=== PATIENT | male | born 1990 | race Caucasian/White ===

== ENCOUNTER 2020-08-10 17:07 | Emergency (ER) | payer OTHER, SELFPAY ==
[2020-08-10 17:20] VITALS: BP 151/79; PULSE 64; RESP 18; TEMP 37.3; O2SAT 98
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
== END 2020-08-10 23:29 | disposition home or self-care (01) ==
PROVIDERS: Emergency Provider Emergency Medicine
DX: S90.412A Abrasion, left great toe, initial encounter (principal); V19.9XXA Pedal cyclist (driver) (passenger) injured in unspecified traffic accident, initial encounter
CPT/HCPCS: 73660; 99283

== ENCOUNTER 2020-12-30 15:59 | Emergency (ER) | payer OTHER, SELFPAY ==
[2020-12-30 16:09] VITALS: BP 154/86; PULSE 75; RESP 16; TEMP 36.6; O2SAT 99; BMI 28.1
[2020-12-30 16:31] LABS: COVID19 -Nasal RAPID Negative (Negative)
[2020-12-30] MEDS: IBUPROFEN 400 MG TABLET 800 MG PO (16:42)
--- NOTE | 2020-12-30 17:06 | ED_ITS ---
HPI - URI/Sore Throat <LAURENCE Mallory - Last Filed: 12/30/20 17:14> General Chief Complaint: Upper Respiratory Symptoms Stated Complaint: nose runny clogged, weak, needs dr note for work Time Seen by Provider: 12/30/20 16:09 Source: patient Mode of arrival: Ambulatory History of Present Illness HPI Narrative: 30-year-old male presents to the ED for runny nose and congestion that started 6 days ago, he reports that his son is positive for rhino virus, he was seeking COVID testing, he is vaccinated. He took the last 2 days off of work for his symptoms, he denies any fever, reports that he has a bilateral frontal headache, he denies any cough, denies any nausea or vomiting. Patient denies any shortness of breath, chest pain, difficulty breathing, wheezing, or other symptoms. Related Data Home Medications Medication Instructions Recorded Confirmed lisinopril 10 1 tab PO DAILY 12/30/20 12/30/20 mg-hydrochlorothiazide 12.5 mg tablet Allergies Allergy/AdvReac Type Severity Reaction Status Date / Time No Known Drug Allergies Allergy Verified 12/30/20 16:11 Review of Systems <LAURENCE Mallory - Last Filed: 12/30/20 17:14> Review of Systems Narrative: General: denies fever, chills Head/Neck: denies headache, neck pain, denies face pain, endorses runny nose and congestion Eyes: denies visual changes, eye pain Cardio: denies chest pain, palpitations Respiratory: denies shortness of breath, cough GI: denies abdominal pain, nausea, vomiting, or diarrhea : denies dysuria, hematuria MSK: denies joint pain, muscle weakness Skin: denies rash, itching Neuro: denies numbness, tingling Patient History <LAURENCE Mallory - Last Filed: 12/30/20 17:14> Medical History Healthy adult Social History lives independently: Yes Smoking Status: Current every day smoker Smoking Status: Current every day smoker alcohol intake frequency: a few times a week Substance Use Type: does not use Exam <LAURENCE Mallory - Last Filed: 12/30/20 17:14> Narrative Exam Narrative: Independently reviewed vitals signs and nursing notes. General: Awake, alert, nontoxic, no cardiorespiratory distress Head/Neck: Atraumatic, neck full range of motion Eyes: EOMI, conjunctiva normal Nose: nares patent, + rhinorrhea, no sinus tenderness to palpation Mouth/Throat: moist mucus membranes, posterior pharynx normal, no oral lesions Cardio: Regular rate and rhythm, no peripheral edema Respiratory: respirations unlabored without wheezing, stridor, or rales. No retractions. GI: Abdomen soft, nontender MSK: Moves all extremities, neurovascularly intact Skin: Normal capillary refill, no rash Neuro: Normal speech and cognition, normal gait Initial Vital Signs Initial Vital Signs: Vital Signs Temperature 98 F 12/30/20 16:09 Pulse Rate 75 12/30/20 16:09 Respiratory Rate 16 12/30/20 16:09 Blood Pressure 154/86 H 12/30/20 16:09 Pulse Oximetry 99 12/30/20 16:09 <Kaylynn Nesbitt DO - Last Filed: 12/30/20 20:00> Initial Vital Signs Initial Vital Signs: Vital Signs Temperature 98 F 12/30/20 16:09 Pulse Rate 75 12/30/20 16:09 Respiratory Rate 16 12/30/20 16:09 Blood Pressure 154/86 H 12/30/20 16:09 Pulse Oximetry 99 12/30/20 16:09 Course <LAURENCE Mallory - Last Filed: 12/30/20 17:14> Orders Ordered: ED Orders 12/30/20 16:05 COVID19 -Nasal swab/Pre-Proc Stat Discontinued Medications Ibuprofen (Ibuprofen 400 Mg Tablet) 800 mg PO NOW ONE Stop: 12/30/20 16:33 Last Admin: 12/30/20 16:42 Dose: 800 mg Documented by: PASTOR Vital Signs Vital signs: Vital Signs - 8 hr 12/30/20 16:09 12/30/20 17:16 Temperature 98 F Pulse Rate 75 70 Respiratory Rate 16 17 Blood Pressure 154/86 H 142/92 H Pulse Oximetry 99 98 <Kaylynn Nesbitt DO - Last Filed: 12/30/20 20:00> Orders Ordered: ED Orders 12/30/20 16:05 COVID19 -Nasal swab/Pre-Proc Stat Discontinued Medications Ibuprofen (Ibuprofen 400 Mg Tablet) 800 mg PO NOW ONE Stop: 12/30/20 16:33 Last Admin: 12/30/20 16:42 Dose: 800 mg Documented by: PASTOR Vital Signs Vital signs: Vital Signs - 8 hr 12/30/20 16:09 12/30/20 17:16 Temperature 98 F Pulse Rate 75 70 Respiratory Rate 16 17 Blood Pressure 154/86 H 142/92 H Pulse Oximetry 99 98 MDM - URI/Sore Throat <LAURENCE Mallory - Last Filed: 12/30/20 17:14> Lab Data Labs: Lab Results 12/30/20 Range/Units 16:05 SARS-CoV-2 (PCR) Negative (Negative) MDM Narrative Medical decision making narrative: 30-year-old male with history of hypertension presents to the ED for congestion and rhinorrhea that started 6 days ago. He is afebrile and nontoxic in appearance, his son tested positive for rhino virus, his COVID test today was negative. This is most likely a viral upper respiratory illness that is consistent with his sick contact with son at home. He received ibuprofen in the ED today which helped with his congestion discomfort. He was recommended to take the next day off of work. Low suspicion for pneumonia, or other bacterial infection. Patient is appropriate and amenable to discharge home. Vital signs are stable on repeat examination is unremarkable. Patient has been informed of results. Patient has been given strict return to ER precautions for any new or worsening symptoms. Patient understands to follow up closely with outpatient providers as instructed. Patient understands plan and agrees to discharge home. All questions and concerns answered at this time. <Kaylynn Nesbitt DO - Last Filed: 12/30/20 20:00> Lab Data Labs: Lab Results 12/30/20 Range/Units 16:05 SARS-CoV-2 (PCR) Negative (Negative) Discharge Plan Departure Patient Disposition: Home Clinical Impression: Upper respiratory infection Qualifiers: URI type: unspecified viral URI Qualified Code(s): J06.9 - Acute upper respiratory infection, unspecified Instructions: DI for Viral Upper Respiratory Infection -- Adult Activity Restrictions/Additional Instructions: *You have been diagnosed with an upper respiratory infection, most likely rhinovirus from your son. Ibuprofen, clear liquids, and Flonase may all be helpful for your symptoms. I do not recommend Sudafed because of your history of high blood pressure. *What to do: *Please continue to take your regular medications as directed. [ ] New medication prescriptions sent to your pharmacy: [ ] [ ] New medication written as a paper prescription [ x] No new medications given *Please follow up with your primary care provider in 2-3 days, call for an appointment. Let them know you were seen in the Emergency Department and that we ask that you be seen in follow up. We will electronically transmit a record of today's note if your PCP is in our system *If you do not have a primary care provider please contact the [facility] Resource line at [phone]. They will ask some questions about your medical history and help get you set up with a doctor in the community. *Return to Emergency Department if you should have any new, worsening or concerning symptoms, such as [fever greater than 101F, chills, worsening pain, persistent vomiting or other bothersome symptoms] Prescriptions: No Action lisinopril-hydrochlorothiazide 10-12.5 mg tablet 1 tab PO DAILY RF: 0 Stand Alone Forms: Work Release Note <Kaylynn Nesbitt, - Last Filed: 12/30/20 20:00> Cosign ED Attending Cosrafiaature Attestation: I was immediately available in the department for consultation. Documentation has been reviewed. I agree with assessment and plan.
[2020-12-30 17:16] VITALS: BP 142/92; PULSE 70; RESP 17; O2SAT 98
== END 2020-12-30 17:17 | disposition home or self-care (01) ==
PROVIDERS: Emergency Provider Nurse Practitioner Critical Care Medicine
DX: J06.9 Acute upper respiratory infection, unspecified (principal); Z20.822 Contact with and (suspected) exposure to COVID-19
CPT/HCPCS: 87635; 99282; 99283; C9803

== ENCOUNTER 2021-01-24 15:14 | Emergency (ER) | payer OTHER, SELFPAY ==
--- NOTE | 2021-01-24 15:21 | DI.RAD.S_ITS ---
PROCEDURE: XR HAND LT MIN 3V INDICATIONS: pain/swelling TECHNIQUE: 3 views of the hand(s) acquired. COMPARISON: None. FINDINGS: Bones: Minimally displaced and angulated transverse fracture of the mid 4th metacarpal. No additional fractures are identified. Joint spacing is maintained. Carpal bones are normally aligned. No suspicious bony lesions. Soft tissues: No suspicious soft tissue calcifications. Soft tissue swelling is noted most prominently along the dorsal hand. IMPRESSION: Minimally displaced and angulated 4th metacarpal fracture Dictated by: Sawyer Landa D.O. on 01/24/2021 at 15:03 Approved by: Sawyer Landa D.O. on 01/24/2021 at 15:05
[2021-01-24 16:48] VITALS: PULSE 84; O2SAT 100
[2021-01-24 16:49] VITALS: BP 140/94; PULSE 79; O2SAT 100
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
[2021-01-24] MEDS: KETOROLAC 10 MG TABLET PO (17:46)
[2021-01-24 18:56] VITALS: BP 159/74; PULSE 68; RESP 17; O2SAT 99
== END 2021-01-24 18:57 | disposition home or self-care (01) ==
PROVIDERS: Emergency Provider Physician Assistant
DX: S62.325A Displaced fracture of shaft of fourth metacarpal bone, left hand, initial encounter for closed fracture (principal); W22.8XXA Striking against or struck by other objects, initial encounter
CPT/HCPCS: 73130; 99283